=== PATIENT | female | born 1995 | race Caucasian/White ===

== ENCOUNTER → 2024-11-03 07:34 | Outpatient (REF) | payer BC, SELFPAY | LOC: MRI 3T 07:34 | PROVIDERS: ATTENDING PHYSICIAN Otolaryngology; FAMILY PHYSICIAN Internal Medicine | DX: H93.A1 Pulsatile tinnitus, right ear (principal); H90.42 Sensorineural hearing loss, unilateral, left ear, with unrestricted hearing on the contralateral side | CPT/HCPCS: 70544; 70553; A9575 ==

== ENCOUNTER → 2025-08-17 10:03 | Outpatient (REF) | payer BC, SELFPAY | LOC: WDC 10:03 | PROVIDERS: ATTENDING PHYSICIAN Internal Medicine | DX: N64.4 Mastodynia (principal) | CPT/HCPCS: 76642; 77062; 77066 ==